=== PATIENT | female | born 1990 | race Hispanic/Latino ===

== ENCOUNTER 2017-04-23 23:14 | Emergency (ER) | payer SELFPAY ==
[~2017-04-23] VITALS: Ht 157.5 cm; Wt 68.9 kg
[2017-04-23] MEDS ORDERED: ONDANSETRON HCL INJ 2 MG/ML VIAL IV STA (23:39)
[2017-04-23] MEDS ORDERED: SODIUM CHLORIDE 0.9% 1000ML 1,000 ML IV ONE (23:45)
[2017-04-24 00:10] LABS: BASOPHILS % 0.5 % (0.0-1.0); EOSINOPHILS # (AUTO) 0.1 (0.0-0.4); HEMATOCRIT 42.4 % (34.2-44.1); HEMOGLOBIN 14.5 g/dL (12.0-16.0); LYMPHOCYTES # (AUTO) 0.9 (1.0-3.2); LYMPHOCYTES % 14.6 % (18.0-39.1); MEAN CORPUSCULAR HEMOGLOBIN 31.7 pg (28-32); MEAN CORPUSCULAR HGB CONC 34.2 g/dL (31-35); MEAN CORPUSCULAR VOLUME 92.6 fL (81-99); MONOCYTES # (AUTO) 0.6 (0.2-0.8); NEUTROPHILS # (AUTO) 4.5 (2.1-6.9); NEUTROPHILS % 73.4 % (38.7-80.0); PLATELET COUNT 279 x10e3/uL (140-360); RED BLOOD COUNT 4.58 x10e6/uL (3.6-5.1); RED CELL DISTRIBUTION WIDTH 11.7 % (11.7-14.4)
[2017-04-24 00:23] LABS: ALANINE AMINOTRANSFERASE 18 IU/L (0-55); ALBUMIN/GLOBULIN RATIO 1.2 (0.8-2.0); ALKALINE PHOSPHATASE 58 IU/L (40-150); ANION GAP 13.4 mmol/L (8-16); BLOOD UREA NITROGEN 9 mg/dL (7-26); BUN/CREATININE RATIO 11 (6-25); CALCIUM 8.5 mg/dL (8.4-10.2); CARBON DIOXIDE 25 mmol/L (22-29); CHLORIDE 103 mmol/L (98-107); CREATINE KINASE 67 IU/L (29-168); CREATININE, SERUM 0.84 mg/dL (0.57-1.11); EST GLOMERULAR FILTRATION RATE > 60 ML/MIN (60-); GLUCOSE 131 mg/dL (74-118); POTASSIUM 3.4 mmol/L (3.5-5.1); SODIUM 138 mmol/L (136-145)
[2017-04-24 00:25] LABS: TROPONIN I 0.006 ng/mL (0-0.300)
--- NOTE | 2017-04-24 00:47 | Diagnostic Imaging Report ---
CHEST SINGLE (PORTABLE), 04/23/2017 11:39 PM Technique: CHEST SINGLE (PORTABLE) Comparison: None available. Clinical history: Syncope Findings: Unremarkable appearance of the heart, mediastinum, lungs and pleural spaces. Impression: 1. Lines/Tubes: None 2. No acute abnormality. Signed by: Dr Kaylene Giles MD on 04/24/2017 12:43 AM
--- NOTE | 2017-04-24 00:50 | Diagnostic Imaging Report ---
EXAMINATION: Head CT without contrast. HISTORY:Syncope and fall. COMPARISON:None. TECHNIQUE: Multidetector axial images were obtained from the foramen magnum to the vertex without contrast. The images were reconstructed using brain and bone algorithms. Thin section brain images were reformatted into coronal and sagittal planes. Intravenous contrast: None IMAGE QUALITY: Acceptable. FINDINGS: Skull/scalp: No abnormality. Parenchyma: No abnormal density. No acute hemorrhage, mass or acute major vascular territorial infarct. Arteries: No density suggestive of thrombosis. Dural sinuses: No abnormal density suggestive of thrombosis. Ventricles: No hydrocephalus or displacement. Extra-axial spaces: No abnormal density. Brain volume: Normal for age. Craniocervical junction: No mass, Chiari malformation, or basilar invagination. Sella: No mass. Paranasal/mastoid sinuses: Imaged portions unremarkable. IMPRESSION: No intracranial abnormality. Signed by: Dr. Liana Kunz M.D. on 04/24/2017 12:47 AM
--- NOTE | 2017-04-24 01:01 | Diagnostic Imaging Report ---
History: Syncope and fall. Comparison studies: None Technique: Axial images were obtained through the cervical region.. Coronal and sagittal images reconstructed from the axial data.. Intravenous contrast: None Findings: Fractures: None. Soft tissue injuries: None. Atlantoaxial articulation: Intact. Alignment: Loss of normal cervical lordosis is either positional or due to muscle spasm.. No scoliosis. Cervicomedullary junction: No abnormalities. The foramen magnum is patent. Soft tissues: No abnormalities. Vertebrae: Asymmetric widening of the distance between the spinous process at level C5 and C6 may be positional or represent underlying ligament injury. There is associated mild asymmetric narrowing of the anterior aspect of intervertebral disc space at C5-C6. No fractures, infection or neoplasm. Degenerative changes: Posterior disc osteophyte complex at C5-C6 without significant canal stenosis. IMPRESSION: 1. No acute cervical spine fracture. Loss of normal cervical lordosis may be positional or due to muscle spasm. 2. Asymmetric widening of interspinous distance and asymmetric narrowing of anterior aspect of intervertebral disc space at level C5-C6 may be positional or due to underlying ligament injury. If there is clinical concern and in the presence of point tenderness can be followed up with MRI of the cervical spine without contrast per trauma protocol. 3. Ligament, spinal cord and or vascular abnormalities cannot be excluded on the basis of this examination. Signed by: Dr. Liana Kunz M.D. on 04/24/2017 12:57 AM
[2017-04-24] MEDS ORDERED: LIDOCAINE 1% W/EPINEPHRINE 20 ML VIAL INJ ONE (01:15)
[2017-04-24 02:59] LABS: BILIRUBIN,URINE NEGATIVE (NEGATIVE); KETONES,URINE NEGATIVE (NEGATIVE); LEUKOCYTE ESTERASE ,URINE NEGATIVE (NEGATIVE); NITRITE,URINE NEGATIVE (NEGATIVE); PROTEIN,URINE DIPSTICK NEGATIVE (NEGATIVE); URINE UROBILINOGEN 0.2 mg/dL (0.2 - 1)
[2017-04-24 03:02] LABS: CLARITY,URINE CLEAR (CLEAR); COLOR,URINE YELLOW (YELLOW)
[2017-04-24 03:04] LABS: AMPHETAMINES SCREEN,URINE NEGATIVE (NEGATIVE); BENZODIAZEPINES SCREEN,URINE NEGATIVE (NEGATIVE); PHENCYCLIDINE SCREEN,URINE NEGATIVE (NEGATIVE)
[2017-04-24 03:12] LABS: BACTERIA,URINE FEW /HPF; EPITHELIAL CELLS,URINE FEW /LPF; RBC,URINE 0-5 /HPF (0-5); WBC,URINE (MAN) 0-5 /HPF (0-5)
[2017-04-24] MEDS ORDERED: ZOFRAN ODT4 MG SL (03:26)
[2017-04-24] MEDS ORDERED: SODIUM CHLORIDE 0.9% 1000ML 1,000 ML ONE (03:43)
[2017-04-24] MEDS ORDERED: SODIUM CHLORIDE 0.9% 1000ML 1,000 ML IV ONE ×2 (03:45)
[2017-04-24 04:22] VITALS: BP 104/63
== END 2017-04-24 06:27 | disposition home or self-care (01) ==
LOC: ER 23:14
DX: R55 Syncope and collapse (principal); R11.2 Nausea with vomiting, unspecified; S01.81XA Laceration without foreign body of other part of head, initial encounter; W01.0XXA Fall on same level from slipping, tripping and stumbling without subsequent striking against object, initial encounter
CPT/HCPCS: 12011; 36415; 70450; 71010; 72125; 80053; 80307; 81001; 82550; 82553; 84484; 84702; 85025; 87086; 87400; 96360; 99284; J7030